=== PATIENT | male | born 1980 | race Caucasian/White ===

== ENCOUNTER 2018-10-24 05:36 | Day surgery (SDC) | payer BC ==
[2018-10-16 15:05] LABS: BASOPHILS # (AUTO) 0.1 X10'3 (0-0.2); BASOPHILS % (AUTO) 0.8 % (0-1); EOSINOPHILS # (AUTO) 0.2 X10'3 (0-0.9); EOSINOPHILS % (AUTO) 2.7 % (0-6); LYMPHOCYTES # (AUTO) 2.8 X10'3 (1.1-4.8); LYMPHOCYTES % (AUTO) 33.8 % (21-51); MEAN CORPUSCULAR HEMOGLOBIN 30.4 PG (27.0-31.0); MEAN CORPUSCULAR HGB CONC 34.8 g/dL (33.0-36.5); MEAN CORPUSCULAR VOLUME 87.2 FL (78-98); MEAN PLATELET VOLUME 8.5 FL (7.4-10.4); MONOCYTES # (AUTO) 0.8 X10'3 (0-0.9); MONOCYTES % (AUTO) 9.1 % (2-12); NEUTROPHILS # (AUTO) 4.4 X10'3 (1.8-7.7); NEUTROPHILS % (AUTO) 53.6 % (42-75); PRE OP HEMATOCRIT 45.8 % (42.0-52.0); PRE OP PLATELET COUNT 237 X10'3 (140-440); RED BLOOD COUNT 5.25 X10'6 (4.70-6.10); RED CELL DISTRIBUTION WIDTH 12.5 % (11.5-14.5)
[2018-10-16 15:26] LABS: ALBUMIN 3.9 G/DL (3.4-5.0); ALKALINE PHOSPHATASE 97 IU/L (46-116); BLOOD UREA NITROGEN 10 MG/DL (7-18); BUN/CREATININE RATIO 10.6 (5.4-32.0); CALCIUM 9.1 MG/DL (8.5-10.1); CHLORIDE 104 MMOL/L (99-107); CREATININE 0.94 MG/DL (0.60-1.10); PRE OP ALT 74 U/L (30-65); PRE OP ANION GAP 7 (8-16); PRE OP AST 31 U/L (10-37); PRE OP BILIRUB, TOTAL 0.4 MG/DL (0.0-1.0); PRE OP GLUCOSE 109 MG/DL (70-104); PRE OP POTASSIUM 4.1 MMOL/L (3.4-5.1); PRE OP SODIUM 140 MMOL/L (135-145); TOTAL CARBON DIOXIDE 29.4 MMOL/L (24-32); TOTAL PROTEIN 7.8 G/DL (6.4-8.2); eGFR 90 ML/MIN
[~2018-10-24] VITALS: Ht 182.9 cm; Wt 93.0 kg
[2018-10-24] VITALS (11 sets, daily range): BP systolic 101–140; BP diastolic 70–91
[~2018-10-24 05:36] MED LIST: ALBU6.7H INH; BICT1TAB PO; FLUO15OI2 TP; KEN0.1O TP; ZOLP10TA5 PO; ceFAZolin 2gm in dextrose, iso 100 ML IV ONE; famotidine 20mg tablet PO ONE; ringers solution, lacted 1,000 ML IV SCH
[2018-10-24] MEDS ORDERED: LIDOcaine 1% (10mg/ml) 2ml vial ONE (05:55)
[2018-10-24] MEDS ORDERED: LIDOcaine 1% 30ml preserv. free vial ONE (06:41)
[2018-10-24] MEDS ORDERED: ketorolac trometh. 30mg/ml inj. ONE ×2 (06:41→08:48)
[2018-10-24] MEDS ORDERED: ROPIVAcaine 0.5% (5mg/ml) 30ml vial ONE (06:42)
[2018-10-24] MEDS ORDERED: BUPIVAcaine/PF 2.5 mg/ml (0.25%) 30ml vial ONE (06:42)
[2018-10-24] MEDS ORDERED: sevoflurane 250ml liquid IH ONE (07:20)
[2018-10-24] MEDS ORDERED: dexamethasone sod phosphate 10mg/ml inj ONE (07:20)
[2018-10-24] MEDS ORDERED: propofol inj 20 ML IV ONE (07:29)
[2018-10-24] MEDS ORDERED: rocuronium 10mg/ml inj IV ONE (07:29)
[2018-10-24] MEDS ORDERED: fentaNYL /PF 50mcg/ml 5ml ampule ONE (07:29)
[2018-10-24] MEDS ORDERED: LIDOcaine 2% (20mg/ml) 5ml vial ONE (07:29)
[2018-10-24] MEDS ORDERED: midazolam 2 mg/2 ml injection ONE (07:29)
[2018-10-24] MEDS ORDERED: ringers solution, lacted 1,000 ML IV SCH (07:54)
[2018-10-24] MEDS ORDERED: proCHLORperazine 10 MG/2 ml inj IV PRN (07:55)
[2018-10-24] MEDS ORDERED: meperidine/PF 25mg/ml syringe IV PRN ×3 (07:55)
[2018-10-24] MEDS ORDERED: morphine 4 MG/ML inj SYRINge IV PRN ×2 (07:55)
[2018-10-24] MEDS ORDERED: ondansetron/PF 4mg/2ml inj IV PRN (07:55)
[2018-10-24] MEDS ORDERED: ondansetron/PF 4mg/2ml inj ONE (08:43)
--- NOTE | 2018-10-24 09:10 | NUR ---
Received from OR via BED , accompanied by Anesthesiologist DR COLE and report given by Anesthesiolgist. PATIENT WAKING UP, DENIES PAIN, V/S WNL, NEUROVASCULAR CHECKLS INTACT, 20G PIV TO LUE, SCD ON, 3 BANDAIDS TO ABDOMEN LAP SITES CDI.
[2018-10-24] MEDS ORDERED: oxyCODONE/APAP 5-325mg tablet PO ONE (09:15)
--- NOTE | 2018-10-24 10:30 | NUR ---
PATIENT A&OX4, DENIES PAIN, V/S WNL, NEUROVASCULAR CHECKLS INTACT, 20G PIV TO UE D/C, SCD OFF, DRESSING CDI, BAND AIDS TO LAP SITES CDI, I HAVE REVIEWED D/C INSTRUCTIONS WITH PATIENT AND FAMILY AND THEY HAVE VERBALIZED UNDERSTANDING. PATIENT D/C HOME WITH ALL BELONGINGS AND FAMILY GAVE TRANSPORT HOME.
== END 2018-10-24 10:30 | disposition home or self-care (01) ==
LOC: PAS 05:36
PROVIDERS: ATTEND Surgery
DX: K42.9 Umbilical hernia without obstruction or gangrene (principal); J45.909 Unspecified asthma, uncomplicated; F32.9 Major depressive disorder, single episode, unspecified; Z79.899 Other long term (current) drug therapy; Z88.1 Allergy status to other antibiotic agents; Z82.49 Family history of ischemic heart disease and other diseases of the circulatory system; Z83.6 Family history of other diseases of the respiratory system; Z98.890 Other specified postprocedural states; Z87.442 Personal history of urinary calculi
CPT/HCPCS: 36415; 49652; 64488; 80053; 82948; 85025; C1781; J0690; J1100; J1885; J2001; J2175; J2250; J2405; J2704; J3010; J3490; S2900; J2795; J7120